=== PATIENT | female | born 1935 | race Caucasian/White ===

== ENCOUNTER → 2018-05-18 | Outpatient (CLI) | payer MEDICARE | END | disposition home or self-care (01) | LOC: RADMN 10:23 | PROVIDERS: ATTEND Internal Medicine Cardiovascular Disease | DX: I50.40 Unspecified combined systolic (congestive) and diastolic (congestive) heart failure (principal) | CPT/HCPCS: 78472 ==

== ENCOUNTER → 2018-11-18 | Outpatient (CLI) | payer MEDICARE, MEDICAID | END | disposition home or self-care (01) | LOC: RADPV 13:06 | PROVIDERS: ATTEND Internal Medicine Interventional Cardiology | DX: I08.3 Combined rheumatic disorders of mitral, aortic and tricuspid valves (principal) | CPT/HCPCS: 93306 ==